=== PATIENT | male | born 1995 | race Caucasian/White ===

== ENCOUNTER 2016-03-14 01:20 | Emergency (ER) | payer BC, OTHER ==
[2016-03-14 01:30] VITALS: BP 138/95; PULSE 88; TEMP 98.5; BMI 20.5
[2016-03-14] MEDS ORDERED: IBUPROFEN 600 MG TABLET (FP) PO ONE ×2 (01:41→01:43)
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
== END 2016-03-14 01:49 | disposition home or self-care (01) ==
LOC: FER 01:20
DX: S09.90XA Unspecified injury of head, initial encounter (principal); W08.XXXA Fall from other furniture, initial encounter; Y93.89 Activity, other specified; Y92.9 Unspecified place or not applicable; F17.210 Nicotine dependence, cigarettes, uncomplicated
CPT/HCPCS: 99282-25

== ENCOUNTER 2019-03-24 16:40 | Emergency (ER) | payer SELFPAY ==
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
[2019-03-24 17:27] VITALS: BP 135/90; PULSE 108; TEMP 98.9; BMI 20.7
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
[2019-03-24] MEDS ORDERED: IBUPROFEN 600 MG TABLET (FP) PO ONE ×2 (17:30→17:41)
== END 2019-03-24 17:47 | disposition home or self-care (01) ==
LOC: FER 16:40
DX: G44.209 Tension-type headache, unspecified, not intractable (principal); S09.90XA Unspecified injury of head, initial encounter; F17.210 Nicotine dependence, cigarettes, uncomplicated; V43.52XA Car driver injured in collision with other type car in traffic accident, initial encounter; Y93.89 Activity, other specified; Y92.410 Unspecified street and highway as the place of occurrence of the external cause
CPT/HCPCS: 99282-25